=== PATIENT | female | born 1960 | race Caucasian/White ===

== ENCOUNTER 2016-07-19 05:14 | Inpatient (IN) | payer MEDICAID ==
[~2016-07-19 05:14] MED LIST: ASPIRIN EC81 MG PO; CELEXA20 M2 PO; COREG12.5 M1 PO; COREG25 M1 PO; COZAAR100 M1 PO; INVOKAMET 150-1 EACH PO; LANTUS100 UNITS/ SC; LIPITOR80 M1 PO; NEURONTIN300 M1 PO; NOVOLOG100 UNITS/ SC; PLAVIX75 M1 PO; PRADAXA150 M1 PO; SEROQUEL25 M2 PO; ZESTRIL40 M2 PO
[2016-07-19] MEDS ORDERED: LANTUS SOL100 UNIT/1 SC (05:43)
[2016-07-19 05:48] LABS: BASO % 0.5 % (0-2); BASO ABSOLUTE COUNT 0.1 tho/cmm (0.0-0.2); EOS % 1.2 % (0-7); EOSINOPHIL ABSOLUTE COUNT 0.2 tho/cmm (0.0-0.7); HCT-HEMATOCRIT 44.8 % (34.0-49.0); HGB-HEMOGLOBIN 15.5 gm/dl (12.0-15.5); IMMATURE GRANULOCYTES ABSOLUTE 0.04 tho/cmm (0-0.03); IMMATURE GRANULOCYTES PERCENT 0.3 % (0-0.3); LYMPH % 20.5 % (20-45); LYMPH ABSOLUTE COUNT 2.7 tho/cmm (0.8-4.5); MCH (MEAN CORPUSCULAR HGB) 28.7 pg (28.0-32.0); MCHC MEAN CORPUSCULAR HGB CONC 34.6 % (32.0-36.0); MEAN PLATELET VOLUME 10.5 cmc (9.4-12.4); MONO % 8.7 % (0-12); MONOCYTE ABSOLUTE COUNT 1.1 tho/cmm (0.0-1.2); NEUTROPHIL ABSOLUTE COUNT 8.9 tho/cmm (1.6-8.0); NEUTROPHIL-AUTOMATED 8.9 tho/cmm (1.6-8.0); NEUTROPHILS % 68.8 % (40-80); PLATELET COUNT 472 tho/cmm (150-450); RED CELL DISTRIBUTION WIDTH 14.6 % (12.4-16.4)
[2016-07-19 06:08] LABS: ANION GAP 16 mmol/L (0-20); BLOOD UREA NITROGEN 17 mg/dl (6-24); CALCIUM 8.7 mg/dl (8.5-10.5); CARBON DIOXIDE-VENOUS 21 mmol/L (22-32); CHLORIDE 108 mmol/l (96-110); CREATININE 1.13 mg/dl (0.50-1.10); GLUCOSE 298 mg/dL (70-110); MAGNESIUM 1.8 mg/dl (1.3-2.6); POTASSIUM 3.9 mmol/L (3.7-5.1); SODIUM 141 mmol/L (135-145); eGFR VALUE FOR BLACK 62 mL/Min
[2016-07-19 06:11] LABS: TSH-THYROID STIMULATING HORM. 4.54 uIU/ml (0.40-3.80)
[2016-07-20] MEDS ORDERED: NOVOLOG FL100 UNIT/2 SC (15:41)
[2016-07-21 07:56] LABS: ABG CO2 ARTERIAL 20 mmol/L (21-27); ARTERIAL BLD GAS O2 SATURATION 96 % (95-98); ARTERIAL BLOOD GAS PCO2 32 mmHg (32-45); ARTERIAL PO2 82 mmHg (70-100); BICARBONATE 19 mmol/L (21-28); BLOOD GAS BASE EXCESS -4 mM/L (-/+3)
[2016-07-21 07:56] LABS: BASO % 0.2 % (0-2); BASO ABSOLUTE COUNT 0.1 tho/cmm (0.0-0.2); EOS % 0.5 % (0-7); EOSINOPHIL ABSOLUTE COUNT 0.1 tho/cmm (0.0-0.7); HCT-HEMATOCRIT 47.8 % (34.0-49.0); HGB-HEMOGLOBIN 15.8 gm/dl (12.0-15.5); LYMPH % 18.2 % (20-45); LYMPH ABSOLUTE COUNT 3.8 tho/cmm (0.8-4.5); MCH (MEAN CORPUSCULAR HGB) 27.3 pg (28.0-32.0); MCHC MEAN CORPUSCULAR HGB CONC 33.1 % (32.0-36.0); MCV (MEAN CELL VOLUME) 82.7 fl (82.0-96.0); MEAN PLATELET VOLUME 10.2 cmc (9.4-12.4); MONO % 8.7 % (0-12); MONOCYTE ABSOLUTE COUNT 1.8 tho/cmm (0.0-1.2); NEUTROPHIL ABSOLUTE COUNT 15.3 tho/cmm (1.6-8.0); NEUTROPHIL-AUTOMATED 15.3 tho/cmm (1.6-8.0); NEUTROPHILS % 72.4 % (40-80); PLATELET COUNT 433 tho/cmm (150-450); RED BLOOD COUNT 5.78 mil/cmm (4.00-5.20); RED CELL DISTRIBUTION WIDTH 14.8 % (12.4-16.4)
[2016-07-21 07:57] LABS: WHITE BLOOD COUNT 21.1 tho/cmm (4.0-10.0)
[2016-07-21 08:18] LABS: ALBUMIN 3.4 g/dl (3.5-5.0); ALKALINE PHOSPHATASE 88 U/L (33-138); ALT/SGPT 45 U/L (12-78); ANION GAP 18 mmol/L (0-20); AST/SGOT 18 U/L (10-40); BILIRUBIN,TOTAL 0.9 mg/dl (0-1.5); BLOOD UREA NITROGEN 18 mg/dl (6-24); CALCIUM 8.9 mg/dl (8.5-10.5); CARBON DIOXIDE-VENOUS 21 mmol/L (22-32); CHLORIDE 107 mmol/l (96-110); CREATININE 1.04 mg/dl (0.50-1.10); GLUCOSE 233 mg/dL (70-110); MAGNESIUM 2.2 mg/dl (1.3-2.6); PHOSPHOROUS 3.2 mg/dl (2.5-4.9); SODIUM 142 mmol/L (135-145); eGFR VALUE FOR BLACK 69 mL/Min
[2016-07-21 18:03] LABS: BASO % 0.2 % (0-2); BASO ABSOLUTE COUNT 0.1 tho/cmm (0.0-0.2); EOS % 0.1 % (0-7); IMMATURE GRANULOCYTES PERCENT 0.5 % (0-0.3); LYMPH % 19.1 % (20-45); LYMPH ABSOLUTE COUNT 4.1 tho/cmm (0.8-4.5); MCH (MEAN CORPUSCULAR HGB) 28.5 pg (28.0-32.0); MCHC MEAN CORPUSCULAR HGB CONC 33.3 % (32.0-36.0); MCV (MEAN CELL VOLUME) 85.4 fl (82.0-96.0); MEAN PLATELET VOLUME 10.1 cmc (9.4-12.4); MONO % 8.5 % (0-12); MONOCYTE ABSOLUTE COUNT 1.8 tho/cmm (0.0-1.2); NEUTROPHIL ABSOLUTE COUNT 15.3 tho/cmm (1.6-8.0); NEUTROPHIL-AUTOMATED 15.3 tho/cmm (1.6-8.0); NEUTROPHILS % 71.6 % (40-80); PLATELET COUNT 415 tho/cmm (150-450); RED BLOOD COUNT 5.27 mil/cmm (4.00-5.20); RED CELL DISTRIBUTION WIDTH 14.6 % (12.4-16.4); WHITE BLOOD COUNT 21.3 tho/cmm (4.0-10.0)
[2016-07-21 18:19] LABS: ABG CO2 ARTERIAL 22 mmol/L (21-27); ARTERIAL BLD GAS O2 SATURATION 99 % (95-98); ARTERIAL BLOOD GAS PCO2 46 mmHg (32-45); ARTERIAL PO2 165 mmHg (70-100); BICARBONATE 21 mmol/L (21-28); BLOOD GAS BASE EXCESS -5 mM/L (-/+3); PH 7.29 Units (7.35-7.45)
[2016-07-21 18:23] LABS: ALB/GLOB RATIO 0.9 (0.8-2.0); ALKALINE PHOSPHATASE 78 U/L (33-138); ALT/SGPT 46 U/L (12-78); ANION GAP 16 mmol/L (0-20); AST/SGOT 33 U/L (10-40); BILIRUBIN,TOTAL 0.9 mg/dl (0-1.5); BLOOD UREA NITROGEN 21 mg/dl (6-24); CALCIUM 7.8 mg/dl (8.5-10.5); CARBON DIOXIDE-VENOUS 20 mmol/L (22-32); CHLORIDE 107 mmol/l (96-110); CREATININE 1.15 mg/dl (0.50-1.10); GLUCOSE 202 mg/dL (70-110); MAGNESIUM 2.5 mg/dl (1.3-2.6); SODIUM 139 mmol/L (135-145); eGFR VALUE FOR BLACK 61 mL/Min
[2016-07-21 19:20] LABS: ABG CO2 ARTERIAL 21 mmol/L (21-27); ARTERIAL BLD GAS O2 SATURATION 98 % (95-98); ARTERIAL BLOOD GAS PCO2 38 mmHg (32-45); ARTERIAL PO2 118 mmHg (70-100); BICARBONATE 20 mmol/L (21-28); BLOOD GAS BASE EXCESS -5 mM/L (-/+3); PH 7.34 Units (7.35-7.45)
[2016-07-21 20:01] LABS: URINE BILIRUBIN NEGATIVE (NEG); URINE BLOOD LARGE (NEG); URINE GLUCOSE (UA) LARGE (NEG); URINE KETONE NEGATIVE (NEG); URINE LEUKOCYTE ESTERASE POSITIVE (NEG); URINE NITRITE NEGATIVE (NEG); URINE PROTEIN LARGE (NEG); URINE SPECIFIC GRAVITY 1.015 (1.003-1.030)
[2016-07-21 20:02] LABS: URINE APPEARANCE CLOUDY; URINE COLOR YELLOW
[2016-07-21 20:09] LABS: URINE AMORPHOUS 4+; URINE BACTERIA 4+
[2016-07-21 20:10] LABS: URINE EPITHELIAL CELLS 0-2 /[HPF] (0-10); URINE WBC 15-20 /[HPF] (0-5)
[2016-07-22 05:25] LABS: ANION GAP 15 mmol/L (0-20); BLOOD UREA NITROGEN 23 mg/dl (6-24); CALCIUM 8.2 mg/dl (8.5-10.5); CARBON DIOXIDE-VENOUS 23 mmol/L (22-32); CHLORIDE 107 mmol/l (96-110); CREATININE 1.16 mg/dl (0.50-1.10); GLUCOSE 192 mg/dL (70-110); POTASSIUM 3.7 mmol/L (3.7-5.1); SODIUM 141 mmol/L (135-145); eGFR VALUE FOR BLACK 61 mL/Min
[2016-07-22 05:42] LABS: ABG CO2 ARTERIAL 22 mmol/L (21-27); ARTERIAL BLD GAS O2 SATURATION 94 % (95-98); ARTERIAL BLOOD GAS PCO2 31 mmHg (32-45); ARTERIAL PO2 65 mmHg (70-100); BICARBONATE 21 mmol/L (21-28); BLOOD GAS BASE EXCESS -2 mM/L (-/+3); PH 7.44 Units (7.35-7.45)
[2016-07-22 12:47] LABS: ABG CO2 ARTERIAL 23 mmol/L (21-27); ARTERIAL BLD GAS O2 SATURATION 94 % (95-98); ARTERIAL BLOOD GAS PCO2 33 mmHg (32-45); ARTERIAL PO2 69 mmHg (70-100); BICARBONATE 22 mmol/L (21-28); BLOOD GAS BASE EXCESS -1 mM/L (-/+3); PH 7.44 Units (7.35-7.45)
[2016-07-22 17:04] LABS: ABG CO2 ARTERIAL 22 mmol/L (21-27); ARTERIAL BLD GAS O2 SATURATION 97 % (95-98); ARTERIAL BLOOD GAS PCO2 32 mmHg (32-45); ARTERIAL PO2 80 mmHg (70-100); BICARBONATE 21 mmol/L (21-28); BLOOD GAS BASE EXCESS -2 mM/L (-/+3); PH 7.43 Units (7.35-7.45)
[2016-07-22 17:25] LABS: BASO % 0.1 % (0-2); EOS % 0.6 % (0-7); EOSINOPHIL ABSOLUTE COUNT 0.1 tho/cmm (0.0-0.7); HCT-HEMATOCRIT 41.4 % (34.0-49.0); HGB-HEMOGLOBIN 13.9 gm/dl (12.0-15.5); IMMATURE GRANULOCYTES ABSOLUTE 0.06 tho/cmm (0-0.03); IMMATURE GRANULOCYTES PERCENT 0.4 % (0-0.3); LYMPH % 11.7 % (20-45); LYMPH ABSOLUTE COUNT 1.8 tho/cmm (0.8-4.5); MCH (MEAN CORPUSCULAR HGB) 28.6 pg (28.0-32.0); MCHC MEAN CORPUSCULAR HGB CONC 33.6 % (32.0-36.0); MCV (MEAN CELL VOLUME) 85.2 fl (82.0-96.0); MEAN PLATELET VOLUME 10.3 cmc (9.4-12.4); MONO % 11.6 % (0-12); MONOCYTE ABSOLUTE COUNT 1.8 tho/cmm (0.0-1.2); NEUTROPHIL ABSOLUTE COUNT 11.8 tho/cmm (1.6-8.0); NEUTROPHIL-AUTOMATED 11.8 tho/cmm (1.6-8.0); NEUTROPHILS % 75.6 % (40-80); PLATELET COUNT 371 tho/cmm (150-450); RED BLOOD COUNT 4.86 mil/cmm (4.00-5.20); RED CELL DISTRIBUTION WIDTH 14.9 % (12.4-16.4); WHITE BLOOD COUNT 15.6 tho/cmm (4.0-10.0)
[2016-07-22 17:35] LABS: ANION GAP 13 mmol/L (0-20); BLOOD UREA NITROGEN 21 mg/dl (6-24); CARBON DIOXIDE-VENOUS 26 mmol/L (22-32); CHLORIDE 108 mmol/l (96-110); CREATININE 1.19 mg/dl (0.50-1.10); GLUCOSE 113 mg/dL (70-110); MAGNESIUM 2.1 mg/dl (1.3-2.6); PHOSPHOROUS 3.3 mg/dl (2.5-4.9); POTASSIUM 3.6 mmol/L (3.7-5.1); SODIUM 143 mmol/L (135-145); eGFR VALUE FOR BLACK 59 mL/Min
--- NOTE | 2016-07-22 19:26 | NUR ---
1526 ON ENTERING ROOM ALARMS RINGING AND FOUND THAT PT IS IN VTAC AND TO VFIB. CODE CALLED, STARTED BAGGING, RESP CAME AND BAGGED, STARTED COMPRESSIONS AND THEN HELP ARRIVED AND SHOCK PADS ADDED AND QUICKLY SHOCKED X1 AND CONVERTED EASILY TO SB TO RSR W OCC PAC. PULMONARY MD HERE AND PT INTUBATED DUE TO NOT WAKING UP. ONLY MEDS GIVEN WHEN NEEDING TO INTUBATE PT AND THEN SEDATION ADDED TO KEEP PT QUIET OVERNIGHT. OG PLACED AND THEN CXR DONE, ALONG WITH STAT LAB DONE. FAMILY CALLED AND THEN FOUND THAT COUSIN CAME IN AND UPDATED WITH WHAT HAPPENED AGAIN TODAY. JUNE BUENROSTRO MD HERE AND REVIEWED CHART TO CONT WHAT WE ARE CURRENTLY DOING AT THIS TIME WITH KEEPING HER SEDATED ON VENT OVER NIGHT AND AMNIO RUNNING AT 1MG.
[2016-07-23 04:36] LABS: ANION GAP 13 mmol/L (0-20); BLOOD UREA NITROGEN 21 mg/dl (6-24); CALCIUM 8.4 mg/dl (8.5-10.5); CARBON DIOXIDE-VENOUS 25 mmol/L (22-32); CHLORIDE 107 mmol/l (96-110); CREATININE 1.07 mg/dl (0.50-1.10); GLUCOSE 103 mg/dL (70-110); POTASSIUM 3.3 mmol/L (3.7-5.1); SODIUM 142 mmol/L (135-145); TRIGLYCERIDES 128 mg/dl (<149); eGFR VALUE FOR BLACK 67 mL/Min
[2016-07-24 04:37] LABS: HGB-HEMOGLOBIN 14.2 gm/dl (12.0-15.5); PLATELET COUNT 351 tho/cmm (150-450)
[2016-07-24 04:48] LABS: ALB/GLOB RATIO 0.8 (0.8-2.0); ALBUMIN 2.6 g/dl (3.5-5.0); ALKALINE PHOSPHATASE 62 U/L (33-138); ALT/SGPT 30 U/L (12-78); ANION GAP 13 mmol/L (0-20); AST/SGOT 21 U/L (10-40); BILIRUBIN,DIRECT 0.2 mg/dl (0.0-0.3); BILIRUBIN,INDIRECT 0.3 mg/dL (0.0-1.0); BILIRUBIN,TOTAL 0.5 mg/dl (0-1.5); BLOOD UREA NITROGEN 17 mg/dl (6-24); CALCIUM 8.1 mg/dl (8.5-10.5); CARBON DIOXIDE-VENOUS 23 mmol/L (22-32); CHLORIDE 109 mmol/l (96-110); CREATININE 0.94 mg/dl (0.50-1.10); GLUCOSE 84 mg/dL (70-110); POTASSIUM 4.1 mmol/L (3.7-5.1); SODIUM 141 mmol/L (135-145); eGFR VALUE FOR BLACK 78 mL/Min
[2016-07-24 05:49] LABS: ABG CO2 ARTERIAL 21 mmol/L (21-27); ARTERIAL BLD GAS O2 SATURATION 92 % (95-98); ARTERIAL BLOOD GAS PCO2 33 mmHg (32-45); BICARBONATE 20 mmol/L (21-28); BLOOD GAS BASE EXCESS -4 mM/L (-/+3)
[2016-07-24 05:50] LABS: ARTERIAL PO2 65 mmHg (70-100)
[2016-07-25 03:48] LABS: ALB/GLOB RATIO 0.7 (0.8-2.0); ALBUMIN 2.6 g/dl (3.5-5.0); ALKALINE PHOSPHATASE 66 U/L (33-138); ALT/SGPT 26 U/L (12-78); AST/SGOT 16 U/L (10-40); BILIRUBIN,DIRECT 0.2 mg/dl (0.0-0.3); BILIRUBIN,INDIRECT 0.2 mg/dL (0.0-1.0); BILIRUBIN,TOTAL 0.4 mg/dl (0-1.5); BLOOD UREA NITROGEN 14 mg/dl (6-24); CALCIUM 8.2 mg/dl (8.5-10.5); CARBON DIOXIDE-VENOUS 26 mmol/L (22-32); CHLORIDE 110 mmol/l (96-110); CREATININE 0.99 mg/dl (0.50-1.10); SODIUM 140 mmol/L (135-145); eGFR VALUE FOR BLACK 73 mL/Min
[2016-07-25 03:52] LABS: ANION GAP 9 mmol/L (0-20); GLUCOSE 163 mg/dL (70-110); POTASSIUM 5.1 mmol/L (3.7-5.1)
[2016-07-26 03:28] LABS: BASO % 0.2 % (0-2); EOS % 1.9 % (0-7); EOSINOPHIL ABSOLUTE COUNT 0.2 tho/cmm (0.0-0.7); HCT-HEMATOCRIT 43.4 % (34.0-49.0); HGB-HEMOGLOBIN 14.5 gm/dl (12.0-15.5); IMMATURE GRANULOCYTES ABSOLUTE 0.06 tho/cmm (0-0.03); IMMATURE GRANULOCYTES PERCENT 0.5 % (0-0.3); LYMPH % 11.1 % (20-45); LYMPH ABSOLUTE COUNT 1.4 tho/cmm (0.8-4.5); MCH (MEAN CORPUSCULAR HGB) 28.3 pg (28.0-32.0); MCHC MEAN CORPUSCULAR HGB CONC 33.4 % (32.0-36.0); MCV (MEAN CELL VOLUME) 84.8 fl (82.0-96.0); MEAN PLATELET VOLUME 9.9 cmc (9.4-12.4); MONO % 15.3 % (0-12); MONOCYTE ABSOLUTE COUNT 1.9 tho/cmm (0.0-1.2); NEUTROPHIL ABSOLUTE COUNT 8.8 tho/cmm (1.6-8.0); NEUTROPHIL-AUTOMATED 8.8 tho/cmm (1.6-8.0); PLATELET COUNT 367 tho/cmm (150-450); RED BLOOD COUNT 5.12 mil/cmm (4.00-5.20); RED CELL DISTRIBUTION WIDTH 14.8 % (12.4-16.4); WHITE BLOOD COUNT 12.4 tho/cmm (4.0-10.0)
[2016-07-26 03:42] LABS: BLOOD UREA NITROGEN 16 mg/dl (6-24); CALCIUM 8.1 mg/dl (8.5-10.5); CARBON DIOXIDE-VENOUS 28 mmol/L (22-32); CHLORIDE 105 mmol/l (96-110); CREATININE 1.03 mg/dl (0.50-1.10); MAGNESIUM 1.9 mg/dl (1.3-2.6); SODIUM 140 mmol/L (135-145); eGFR VALUE FOR BLACK 70 mL/Min
[2016-07-26 03:44] LABS: ANION GAP 11 mmol/L (0-20); GLUCOSE 276 mg/dL (70-110); POTASSIUM 4.1 mmol/L (3.7-5.1)
[2016-07-26 05:33] LABS: ABG CO2 ARTERIAL 27 mmol/L (21-27); ARTERIAL BLD GAS O2 SATURATION 95 % (95-98); ARTERIAL BLOOD GAS PCO2 43 mmHg (32-45); ARTERIAL PO2 75 mmHg (70-100); BICARBONATE 25 mmol/L (21-28); BLOOD GAS BASE EXCESS 1 mM/L (-/+3); PH 7.39 Units (7.35-7.45)
[2016-07-26] MEDS ORDERED: CEFTRIAXON1000 MG/VI IV (10:15)
[2016-07-26] MEDS ORDERED: IPRAT-ALBUT 0.5-3 ML ×2 (10:16→10:17)
[2016-07-26] MEDS ORDERED: LOVENOX100 MG/1 M SC (10:17)
[2016-07-26] MEDS ORDERED: AMIODARONE HCL200 M1 PO (10:18)
[2016-07-26] MEDS ORDERED: DIPRIVAN IV (10:20)
[2016-07-26] MEDS ORDERED: FENTANYL (10:23)
[2016-07-26] MEDS ORDERED: TYLENOL325 M2 PO (10:27)
[2016-07-26] MEDS ORDERED: MORPHINE IV (10:27)
[2016-07-26] MEDS ORDERED: LASIX40 M1 PO (10:28)
[2016-07-26] MEDS ORDERED: PROTONIX IV40 MG IV (10:29)
[2016-07-26] MEDS ORDERED: PERIDEX118 ML SSP (10:29)
[2016-07-26] MEDS ORDERED: NOVOLOG FL100 UNIT/2 SC (10:33)
[2016-07-26] MEDS ORDERED: LEVEMIR100 UNITS/ SC (10:33)
[2016-12-08] MEDS ORDERED: PRADAXA75 M1 PO (15:46)
[2016-12-08] MEDS ORDERED: NORVASC5 M2 PO (15:47)
[2016-12-08] MEDS ORDERED: GABAPENTIN300 M1 PO (15:47)
[2016-12-08] MEDS ORDERED: ISOSORBIDE MONO30 M4 PO (15:47)
[2016-12-08] MEDS ORDERED: CARDIZEM CD120 M1 PO (15:48)
[2016-12-08] MEDS ORDERED: FLAGYL500 M1 PO (15:49)
[2016-12-08] MEDS ORDERED: NOVOLOG FL100 UNIT/2 SC (15:50)
[2016-12-08] MEDS ORDERED: COREG25 M1 PO (15:51)
[2016-12-08] MEDS ORDERED: CLOPIDOGREL75 M1 PO (15:51)
[2016-12-08] MEDS ORDERED: QUETIAPINE FUMA25 M1 PO (15:52)
[2016-12-08] MEDS ORDERED: [UNRECOGNIZED DRUG - OTHER] PO (15:53)
[2016-12-08] MEDS ORDERED: ALDACTONE25 M1 PO (15:53)
[2016-12-08] MEDS ORDERED: INVOKANA300 MG PO (15:54)
[2016-12-08] MEDS ORDERED: METOPROLOL TART25 M1 PO (15:54)
[2016-12-08] MEDS ORDERED: LIPITOR80 M1 PO (15:54)
[2016-12-08] MEDS ORDERED: CARDIZEM CD360 M1 PO (15:55)
[2016-12-08] MEDS ORDERED: AMIODARONE HCL200 M1 PO (15:56)
[2016-12-08] MEDS ORDERED: LANTUS100 UNITS/ SC (15:56)
[2016-12-08] MEDS ORDERED: LASIX40 M1 PO (15:57)
[2016-12-09] MEDS ORDERED: ASPIRIN81 M1 PO (11:20)
[2016-12-09] MEDS ORDERED: GLYXAMBI 10 MG1 EACH PO (14:16)
[2016-12-09] MEDS ORDERED: NITROGLYCERIN0.4 M2 SL (14:27)
[2016-12-09] MEDS ORDERED: MECLIZINE HCL25 M3 PO (18:30)
[2016-12-11] MEDS ORDERED: TOUJEO SOL300 UNIT/1 SC (09:43)
[2016-12-11] MEDS ORDERED: GLYXAMBI 10 MG1 EACH PO (09:45)
== END 2016-07-26 17:34 | disposition other institution (70) | DRG 286 ==
LOC: EDMED 05:14 → PCUA 12:25 → CCU 07-21 09:31
PROVIDERS: Emergency Medicine; Hospitalist; Internal Medicine; Internal Medicine Critical Care Medicine; Nurse Practitioner Acute Care; Physician Assistant; ADMIT Internal Medicine
PROC: 0BH17EZ Insertion of Endotracheal Airway into Trachea, Via Natural or Artificial Opening (ICD-10-PCS; principal; 2016-07-21)
PROC: 5A1945Z Respiratory Ventilation, 24-96 Consecutive Hours (ICD-10-PCS; 2016-07-21)
PROC: 4A023N7 Measurement of Cardiac Sampling and Pressure, Left Heart, Percutaneous Approach (ICD-10-PCS; 2016-07-21)
PROC: 02HV33Z Insertion of Infusion Device into Superior Vena Cava, Percutaneous Approach (ICD-10-PCS; 2016-07-21)
PROC: B2111ZZ Fluoroscopy of Multiple Coronary Arteries using Low Osmolar Contrast (ICD-10-PCS; 2016-07-21)
PROC: B2151ZZ Fluoroscopy of Left Heart using Low Osmolar Contrast (ICD-10-PCS; 2016-07-21)
DX: I48.0 Paroxysmal atrial fibrillation (principal); J96.90 Respiratory failure, unspecified, unspecified whether with hypoxia or hypercapnia; I47.2 Ventricular tachycardia; I25.2 Old myocardial infarction; E11.40 Type 2 diabetes mellitus with diabetic neuropathy, unspecified; F32.9 Major depressive disorder, single episode, unspecified; I46.2 Cardiac arrest due to underlying cardiac condition; I25.10 Atherosclerotic heart disease of native coronary artery without angina pectoris; I12.9 Hypertensive chronic kidney disease with stage 1 through stage 4 chronic kidney disease, or unspecified chronic kidney disease; N18.3 Chronic kidney disease, stage 3 (moderate); I49.01 Ventricular fibrillation; Z79.4 Long term (current) use of insulin; Z86.73 Personal history of transient ischemic attack (TIA), and cerebral infarction without residual deficits; Z79.82 Long term (current) use of aspirin; Z79.02 Long term (current) use of antithrombotics/antiplatelets
CPT/HCPCS: C1725; C1751; C1758; C1769; C1887; C1894; C9113; G0378; J0282; J0295; J0360; J0696; J1644; J1650; J1815; J1940; J2250; J2270; J2704; J3010; J3475; J3480; J7040; Q9967

== ENCOUNTER 2016-07-31 13:11 | Inpatient (IN) | payer MEDICAID ==
[~2016-07-31 13:11] MED LIST changes: +AMIODARONE HCL200 M1 PO; +CEFTRIAXON1000 MG/VI IV; +DIPRIVAN IV; +FENTANYL; +IPRAT-ALBUT 0.5-3 ML; +LANTUS SOL100 UNIT/1 SC; +LASIX40 M1 PO; +LEVEMIR100 UNITS/ SC; +LOVENOX100 MG/1 M SC; +MORPHINE IV; +NOVOLOG FL100 UNIT/2 SC; +PERIDEX118 ML SSP; +PROTONIX IV40 MG IV; +TYLENOL325 M2 PO
[2016-08-02 10:30] LABS: BASO % 0.6 % (0-2); BASO ABSOLUTE COUNT 0.1 tho/cmm (0.0-0.2); EOS % 3.1 % (0-7); EOSINOPHIL ABSOLUTE COUNT 0.5 tho/cmm (0.0-0.7); HCT-HEMATOCRIT 45.1 % (34.0-49.0); HGB-HEMOGLOBIN 15.2 gm/dl (12.0-15.5); IMMATURE GRANULOCYTES ABSOLUTE 0.35 tho/cmm (0-0.03); LYMPH ABSOLUTE COUNT 2.4 tho/cmm (0.8-4.5); MCH (MEAN CORPUSCULAR HGB) 27.8 pg (28.0-32.0); MCHC MEAN CORPUSCULAR HGB CONC 33.7 % (32.0-36.0); MCV (MEAN CELL VOLUME) 82.4 fl (82.0-96.0); MEAN PLATELET VOLUME 9.5 cmc (9.4-12.4); MONO % 11.8 % (0-12); MONOCYTE ABSOLUTE COUNT 2.1 tho/cmm (0.0-1.2); NEUTROPHIL ABSOLUTE COUNT 11.9 tho/cmm (1.6-8.0); NEUTROPHIL-AUTOMATED 11.9 tho/cmm (1.6-8.0); NEUTROPHILS % 68.5 % (40-80); PLATELET COUNT 528 tho/cmm (150-450); RED BLOOD COUNT 5.47 mil/cmm (4.00-5.20); RED CELL DISTRIBUTION WIDTH 14.5 % (12.4-16.4); WHITE BLOOD COUNT 17.4 tho/cmm (4.0-10.0)
[2016-08-02 10:31] LABS: BLOOD UREA NITROGEN 17 mg/dl (6-24); CALCIUM 8.4 mg/dl (8.5-10.5); CARBON DIOXIDE-VENOUS 26 mmol/L (22-32); CHLORIDE 102 mmol/l (96-110); CREATININE 1.07 mg/dl (0.50-1.10); GLUCOSE 267 mg/dL (70-110); SODIUM 137 mmol/L (135-145); eGFR VALUE FOR BLACK 67 mL/Min
[2016-08-02 10:32] LABS: ANION GAP 14 mmol/L (0-20); MAGNESIUM 1.5 mg/dl (1.3-2.6)
[2016-08-02 10:33] LABS: POTASSIUM 4.9 mmol/L (3.7-5.1)
[2016-08-04] MEDS ORDERED: DILTIAZEM 24HR180 M4 PO (15:38)
[2016-08-04] MEDS ORDERED: FLAGYL500 M1 PO (15:38)
[2016-08-04] MEDS ORDERED: OMEPRAZOLE40 M2 PO (15:39)
[2016-08-04] MEDS ORDERED: COREG25 M1 PO (15:40)
[2016-08-04] MEDS ORDERED: LIPITOR80 M1 PO (15:41)
[2016-08-04] MEDS ORDERED: PRADAXA150 M1 PO (15:42)
[2016-08-04] MEDS ORDERED: INVOKAMET 50-51 EACH PO (15:46)
[2016-12-08] MEDS ORDERED: PRADAXA75 M1 PO (15:46)
[2016-12-08] MEDS ORDERED: ISOSORBIDE MONO30 M4 PO (15:47)
[2016-12-08] MEDS ORDERED: NORVASC5 M2 PO (15:47)
[2016-12-08] MEDS ORDERED: GABAPENTIN300 M1 PO (15:47)
[2016-12-08] MEDS ORDERED: CARDIZEM CD120 M1 PO (15:48)
[2016-12-08] MEDS ORDERED: FLAGYL500 M1 PO (15:49)
[2016-12-08] MEDS ORDERED: NOVOLOG FL100 UNIT/2 SC (15:50)
[2016-12-08] MEDS ORDERED: CLOPIDOGREL75 M1 PO (15:51)
[2016-12-08] MEDS ORDERED: COREG25 M1 PO (15:51)
[2016-12-08] MEDS ORDERED: QUETIAPINE FUMA25 M1 PO (15:52)
[2016-12-08] MEDS ORDERED: ALDACTONE25 M1 PO (15:53)
[2016-12-08] MEDS ORDERED: [UNRECOGNIZED DRUG - OTHER] PO (15:53)
[2016-12-08] MEDS ORDERED: METOPROLOL TART25 M1 PO (15:54)
[2016-12-08] MEDS ORDERED: LIPITOR80 M1 PO (15:54)
[2016-12-08] MEDS ORDERED: INVOKANA300 MG PO (15:54)
[2016-12-08] MEDS ORDERED: CARDIZEM CD360 M1 PO (15:55)
[2016-12-08] MEDS ORDERED: LANTUS100 UNITS/ SC (15:56)
[2016-12-08] MEDS ORDERED: AMIODARONE HCL200 M1 PO (15:56)
[2016-12-08] MEDS ORDERED: LASIX40 M1 PO (15:57)
[2016-12-09] MEDS ORDERED: ASPIRIN81 M1 PO (11:20)
[2016-12-09] MEDS ORDERED: GLYXAMBI 10 MG1 EACH PO (14:16)
[2016-12-09] MEDS ORDERED: NITROGLYCERIN0.4 M2 SL (14:27)
[2016-12-09] MEDS ORDERED: MECLIZINE HCL25 M3 PO (18:30)
[2016-12-11] MEDS ORDERED: TOUJEO SOL300 UNIT/1 SC (09:43)
[2016-12-11] MEDS ORDERED: GLYXAMBI 10 MG1 EACH PO (09:45)
== END 2016-08-04 16:30 | DRG 57 ==
LOC: EMR2 13:11 → 5EB 14:01
PROVIDERS: Internal Medicine; Internal Medicine Cardiovascular Disease; ADMIT Internal Medicine Cardiovascular Disease
DX: I69.354 Hemiplegia and hemiparesis following cerebral infarction affecting left non-dominant side (principal); E11.21 Type 2 diabetes mellitus with diabetic nephropathy; Z86.74 Personal history of sudden cardiac arrest; A04.7 Enterocolitis due to Clostridium difficile; I48.0 Paroxysmal atrial fibrillation; I25.10 Atherosclerotic heart disease of native coronary artery without angina pectoris; I25.2 Old myocardial infarction; I45.81 Long QT syndrome; Z95.810 Presence of automatic (implantable) cardiac defibrillator; F32.9 Major depressive disorder, single episode, unspecified; Z95.5 Presence of coronary angioplasty implant and graft; I12.9 Hypertensive chronic kidney disease with stage 1 through stage 4 chronic kidney disease, or unspecified chronic kidney disease; E11.22 Type 2 diabetes mellitus with diabetic chronic kidney disease; N18.3 Chronic kidney disease, stage 3 (moderate)
CPT/HCPCS: G0008; J1815; J3475

== ENCOUNTER 2016-08-06 21:06 | Inpatient (IN) | payer MEDICAID ==
[~2016-08-06 21:06] MED LIST changes: +DILTIAZEM 24HR180 M4 PO; +FLAGYL500 M1 PO; +INVOKAMET 50-51 EACH PO; +OMEPRAZOLE40 M2 PO
[2016-08-06 21:37] LABS: BASO % 0.3 % (0-2); BASO ABSOLUTE COUNT 0.1 tho/cmm (0.0-0.2); EOS % 2.3 % (0-7); EOSINOPHIL ABSOLUTE COUNT 0.4 tho/cmm (0.0-0.7); HCT-HEMATOCRIT 42.5 % (34.0-49.0); HGB-HEMOGLOBIN 14.6 gm/dl (12.0-15.5); IMMATURE GRANULOCYTES ABSOLUTE 0.08 tho/cmm (0-0.03); IMMATURE GRANULOCYTES PERCENT 0.4 % (0-0.3); LYMPH % 17.9 % (20-45); LYMPH ABSOLUTE COUNT 3.2 tho/cmm (0.8-4.5); MCH (MEAN CORPUSCULAR HGB) 27.8 pg (28.0-32.0); MCHC MEAN CORPUSCULAR HGB CONC 34.4 % (32.0-36.0); MEAN PLATELET VOLUME 9.3 cmc (9.4-12.4); MONO % 10.4 % (0-12); MONOCYTE ABSOLUTE COUNT 1.9 tho/cmm (0.0-1.2); NEUTROPHIL ABSOLUTE COUNT 12.3 tho/cmm (1.6-8.0); NEUTROPHIL-AUTOMATED 12.3 tho/cmm (1.6-8.0); NEUTROPHILS % 68.7 % (40-80); PLATELET COUNT 694 tho/cmm (150-450); RED BLOOD COUNT 5.25 mil/cmm (4.00-5.20); RED CELL DISTRIBUTION WIDTH 14.4 % (12.4-16.4); WHITE BLOOD COUNT 17.9 tho/cmm (4.0-10.0)
[2016-08-06 21:52] LABS: ANION GAP 14 mmol/L (0-20); BLOOD UREA NITROGEN 13 mg/dl (6-24); CALCIUM 8.6 mg/dl (8.5-10.5); CARBON DIOXIDE-VENOUS 25 mmol/L (22-32); CHLORIDE 102 mmol/l (96-110); CREATININE 1.33 mg/dl (0.50-1.10); GLUCOSE 290 mg/dL (70-110); SODIUM 138 mmol/L (135-145); eGFR VALUE FOR BLACK 51 mL/Min
[2016-08-06 22:04] LABS: MAGNESIUM 1.6 mg/dl (1.3-2.6); POTASSIUM 3.3 mmol/L (3.7-5.1)
[2016-08-07] MEDS ORDERED: METOPROLOL TART25 M1 PO (00:11)
[2016-08-07] MEDS ORDERED: TOUJEO SOL300 UNIT/1 SC (09:57)
[2016-08-07] MEDS ORDERED: LISINOPRIL40 M1 PO (09:58)
[2016-08-07 22:03] LABS: ANION GAP 14 mmol/L (0-20); BLOOD UREA NITROGEN 12 mg/dl (6-24); CALCIUM 8.3 mg/dl (8.5-10.5); CARBON DIOXIDE-VENOUS 26 mmol/L (22-32); CHLORIDE 103 mmol/l (96-110); CREATININE 1.25 mg/dl (0.50-1.10); GLUCOSE 222 mg/dL (70-110); SODIUM 139 mmol/L (135-145); eGFR VALUE FOR BLACK 55 mL/Min
[2016-08-07 22:22] LABS: POTASSIUM 3.5 mmol/L (3.7-5.1)
[2016-08-08 08:55] LABS: ANION GAP 12 mmol/L (0-20); BLOOD UREA NITROGEN 10 mg/dl (6-24); CALCIUM 8.5 mg/dl (8.5-10.5); CARBON DIOXIDE-VENOUS 28 mmol/L (22-32); CHLORIDE 106 mmol/l (96-110); CREATININE 0.98 mg/dl (0.50-1.10); GLUCOSE 130 mg/dL (70-110); POTASSIUM 3.3 mmol/L (3.7-5.1); SODIUM 143 mmol/L (135-145); eGFR VALUE FOR BLACK 74 mL/Min
[2016-08-08 14:25] LABS: URINE BILIRUBIN NEGATIVE (NEG); URINE BLOOD SMALL (NEG); URINE GLUCOSE (UA) LARGE (NEG); URINE KETONE NEGATIVE (NEG); URINE LEUKOCYTE ESTERASE POSITIVE (NEG); URINE NITRITE NEGATIVE (NEG); URINE PROTEIN MODERATE (NEG); URINE SPECIFIC GRAVITY 1.015 (1.003-1.030)
[2016-08-08 14:26] LABS: URINE APPEARANCE HAZY; URINE COLOR YELLOW
[2016-08-08 14:40] LABS: URINE BACTERIA 1+
[2016-08-08 17:03] LABS: BASO % 0.2 % (0-2); EOS % 1.3 % (0-7); EOSINOPHIL ABSOLUTE COUNT 0.2 tho/cmm (0.0-0.7); HCT-HEMATOCRIT 41.5 % (34.0-49.0); HGB-HEMOGLOBIN 13.8 gm/dl (12.0-15.5); IMMATURE GRANULOCYTES ABSOLUTE 0.05 tho/cmm (0-0.03); IMMATURE GRANULOCYTES PERCENT 0.3 % (0-0.3); LYMPH % 15.7 % (20-45); LYMPH ABSOLUTE COUNT 2.6 tho/cmm (0.8-4.5); MCH (MEAN CORPUSCULAR HGB) 27.4 pg (28.0-32.0); MCHC MEAN CORPUSCULAR HGB CONC 33.3 % (32.0-36.0); MCV (MEAN CELL VOLUME) 82.5 fl (82.0-96.0); MEAN PLATELET VOLUME 9.9 cmc (9.4-12.4); MONO % 9.2 % (0-12); MONOCYTE ABSOLUTE COUNT 1.5 tho/cmm (0.0-1.2); NEUTROPHIL ABSOLUTE COUNT 12.3 tho/cmm (1.6-8.0); NEUTROPHIL-AUTOMATED 12.3 tho/cmm (1.6-8.0); NEUTROPHILS % 73.3 % (40-80); PLATELET COUNT 704 tho/cmm (150-450); RED BLOOD COUNT 5.03 mil/cmm (4.00-5.20); RED CELL DISTRIBUTION WIDTH 14.7 % (12.4-16.4); WHITE BLOOD COUNT 16.8 tho/cmm (4.0-10.0)
[2016-08-08 17:23] LABS: ALB/GLOB RATIO 0.6 (0.8-2.0); ALBUMIN 2.7 g/dl (3.5-5.0); ALKALINE PHOSPHATASE 80 U/L (33-138); ALT/SGPT 13 U/L (12-78); AST/SGOT 13 U/L (10-40); BILIRUBIN,DIRECT 0.1 mg/dl (0.0-0.3); BILIRUBIN,INDIRECT 0.5 mg/dL (0.0-1.0); BILIRUBIN,TOTAL 0.6 mg/dl (0-1.5); C-REACTIVE PROTEIN 11.2 mg/dl (0-0.9)
[2016-08-08 17:53] LABS: PROCALCITONIN 0.08 ng/ml (0.05-0.09)
[2016-08-09 04:39] LABS: ALB/GLOB RATIO 0.5 (0.8-2.0); ALBUMIN 2.4 g/dl (3.5-5.0); ALKALINE PHOSPHATASE 74 U/L (33-138); ALT/SGPT 10 U/L (12-78); ANION GAP 13 mmol/L (0-20); AST/SGOT 13 U/L (10-40); BILIRUBIN,DIRECT 0.1 mg/dl (0.0-0.3); BILIRUBIN,INDIRECT 0.4 mg/dL (0.0-1.0); BILIRUBIN,TOTAL 0.5 mg/dl (0-1.5); BLOOD UREA NITROGEN 12 mg/dl (6-24); CALCIUM 8.5 mg/dl (8.5-10.5); CARBON DIOXIDE-VENOUS 26 mmol/L (22-32); CHLORIDE 103 mmol/l (96-110); CREATININE 1.05 mg/dl (0.50-1.10); GLUCOSE 151 mg/dL (70-110); POTASSIUM 3.6 mmol/L (3.7-5.1); SODIUM 138 mmol/L (135-145); eGFR VALUE FOR BLACK 68 mL/Min
[2016-08-11] MEDS ORDERED: CARDIZEM30 M1 PO (15:48)
[2016-08-11] MEDS ORDERED: ALDACTONE25 M1 PO (15:51)
[2016-12-08] MEDS ORDERED: PRADAXA75 M1 PO (15:46)
[2016-12-08] MEDS ORDERED: NORVASC5 M2 PO (15:47)
[2016-12-08] MEDS ORDERED: ISOSORBIDE MONO30 M4 PO (15:47)
[2016-12-08] MEDS ORDERED: GABAPENTIN300 M1 PO (15:47)
[2016-12-08] MEDS ORDERED: CARDIZEM CD120 M1 PO (15:48)
[2016-12-08] MEDS ORDERED: FLAGYL500 M1 PO (15:49)
[2016-12-08] MEDS ORDERED: NOVOLOG FL100 UNIT/2 SC (15:50)
[2016-12-08] MEDS ORDERED: CLOPIDOGREL75 M1 PO (15:51)
[2016-12-08] MEDS ORDERED: COREG25 M1 PO (15:51)
[2016-12-08] MEDS ORDERED: QUETIAPINE FUMA25 M1 PO (15:52)
[2016-12-08] MEDS ORDERED: [UNRECOGNIZED DRUG - OTHER] PO (15:53)
[2016-12-08] MEDS ORDERED: ALDACTONE25 M1 PO (15:53)
[2016-12-08] MEDS ORDERED: METOPROLOL TART25 M1 PO (15:54)
[2016-12-08] MEDS ORDERED: INVOKANA300 MG PO (15:54)
[2016-12-08] MEDS ORDERED: LIPITOR80 M1 PO (15:54)
[2016-12-08] MEDS ORDERED: CARDIZEM CD360 M1 PO (15:55)
[2016-12-08] MEDS ORDERED: AMIODARONE HCL200 M1 PO (15:56)
[2016-12-08] MEDS ORDERED: LANTUS100 UNITS/ SC (15:56)
[2016-12-08] MEDS ORDERED: LASIX40 M1 PO (15:57)
[2016-12-09] MEDS ORDERED: ASPIRIN81 M1 PO (11:20)
[2016-12-09] MEDS ORDERED: GLYXAMBI 10 MG1 EACH PO (14:16)
[2016-12-09] MEDS ORDERED: NITROGLYCERIN0.4 M2 SL (14:27)
[2016-12-09] MEDS ORDERED: MECLIZINE HCL25 M3 PO (18:30)
[2016-12-11] MEDS ORDERED: TOUJEO SOL300 UNIT/1 SC (09:43)
[2016-12-11] MEDS ORDERED: GLYXAMBI 10 MG1 EACH PO (09:45)
== END 2016-08-11 18:20 | DRG 310 ==
LOC: EDMED 21:06 → EMR2 23:50 → PCUA 08-07 17:50
PROVIDERS: Emergency Medicine; Internal Medicine Cardiovascular Disease; Physician Assistant Medical; ADMIT Internal Medicine Interventional Cardiology
PROC: 5A2204Z Restoration of Cardiac Rhythm, Single (ICD-10-PCS; principal; 2016-08-09)
DX: I48.0 Paroxysmal atrial fibrillation (principal); E11.22 Type 2 diabetes mellitus with diabetic chronic kidney disease; Z86.74 Personal history of sudden cardiac arrest; I25.10 Atherosclerotic heart disease of native coronary artery without angina pectoris; E87.6 Hypokalemia; D47.3 Essential (hemorrhagic) thrombocythemia; N18.3 Chronic kidney disease, stage 3 (moderate); I12.9 Hypertensive chronic kidney disease with stage 1 through stage 4 chronic kidney disease, or unspecified chronic kidney disease; Z86.73 Personal history of transient ischemic attack (TIA), and cerebral infarction without residual deficits; Z79.01 Long term (current) use of anticoagulants; Z95.810 Presence of automatic (implantable) cardiac defibrillator; Z95.5 Presence of coronary angioplasty implant and graft; D72.829 Elevated white blood cell count, unspecified
CPT/HCPCS: J0282; J1815; J3475; J3480; J7050

== ENCOUNTER 2016-08-28 11:36 | Observation (INO) | payer MEDICAID ==
[~2016-08-28 11:36] MED LIST changes: +ALDACTONE25 M1 PO; +CARDIZEM30 M1 PO; +LISINOPRIL40 M1 PO; +METOPROLOL TART25 M1 PO; +TOUJEO SOL300 UNIT/1 SC
[2016-08-28 12:05] LABS: BASO % 0.5 % (0-2); BASO ABSOLUTE COUNT 0.1 tho/cmm (0.0-0.2); EOS % 2.3 % (0-7); EOSINOPHIL ABSOLUTE COUNT 0.3 tho/cmm (0.0-0.7); HCT-HEMATOCRIT 43.4 % (34.0-49.0); HGB-HEMOGLOBIN 14.8 gm/dl (12.0-15.5); IMMATURE GRANULOCYTES ABSOLUTE 0.04 tho/cmm (0-0.03); IMMATURE GRANULOCYTES PERCENT 0.4 % (0-0.3); LYMPH ABSOLUTE COUNT 2.6 tho/cmm (0.8-4.5); MCH (MEAN CORPUSCULAR HGB) 27.8 pg (28.0-32.0); MCHC MEAN CORPUSCULAR HGB CONC 34.1 % (32.0-36.0); MCV (MEAN CELL VOLUME) 81.6 fl (82.0-96.0); MEAN PLATELET VOLUME 9.8 cmc (9.4-12.4); MONO % 8.3 % (0-12); MONOCYTE ABSOLUTE COUNT 0.9 tho/cmm (0.0-1.2); NEUTROPHIL ABSOLUTE COUNT 7.3 tho/cmm (1.6-8.0); NEUTROPHIL-AUTOMATED 7.3 tho/cmm (1.6-8.0); NEUTROPHILS % 65.5 % (40-80); PLATELET COUNT 400 tho/cmm (150-450); RED BLOOD COUNT 5.32 mil/cmm (4.00-5.20); RED CELL DISTRIBUTION WIDTH 16.3 % (12.4-16.4); WHITE BLOOD COUNT 11.2 tho/cmm (4.0-10.0)
[2016-08-28] MEDS ORDERED: METOPROLOL TART25 M1 PO (12:10)
[2016-08-28] MEDS ORDERED: FLAGYL500 M1 PO (12:11)
[2016-08-28 13:31] LABS: ANION GAP 12 mmol/L (0-20); BLOOD UREA NITROGEN 15 mg/dl (6-24); CALCIUM 8.2 mg/dl (8.5-10.5); CARBON DIOXIDE-VENOUS 24 mmol/L (22-32); CHLORIDE 108 mmol/l (96-110); CREATININE 1.07 mg/dl (0.50-1.10); GLUCOSE 261 mg/dL (70-110); MAGNESIUM 1.8 mg/dl (1.8-2.6); SODIUM 140 mmol/L (135-145); eGFR VALUE FOR BLACK 66 mL/Min
[2016-12-08] MEDS ORDERED: PRADAXA75 M1 PO (15:46)
[2016-12-08] MEDS ORDERED: NORVASC5 M2 PO (15:47)
[2016-12-08] MEDS ORDERED: GABAPENTIN300 M1 PO (15:47)
[2016-12-08] MEDS ORDERED: ISOSORBIDE MONO30 M4 PO (15:47)
[2016-12-08] MEDS ORDERED: CARDIZEM CD120 M1 PO (15:48)
[2016-12-08] MEDS ORDERED: FLAGYL500 M1 PO (15:49)
[2016-12-08] MEDS ORDERED: NOVOLOG FL100 UNIT/2 SC (15:50)
[2016-12-08] MEDS ORDERED: CLOPIDOGREL75 M1 PO (15:51)
[2016-12-08] MEDS ORDERED: COREG25 M1 PO (15:51)
[2016-12-08] MEDS ORDERED: QUETIAPINE FUMA25 M1 PO (15:52)
[2016-12-08] MEDS ORDERED: [UNRECOGNIZED DRUG - OTHER] PO (15:53)
[2016-12-08] MEDS ORDERED: ALDACTONE25 M1 PO (15:53)
[2016-12-08] MEDS ORDERED: INVOKANA300 MG PO (15:54)
[2016-12-08] MEDS ORDERED: LIPITOR80 M1 PO (15:54)
[2016-12-08] MEDS ORDERED: METOPROLOL TART25 M1 PO (15:54)
[2016-12-08] MEDS ORDERED: CARDIZEM CD360 M1 PO (15:55)
[2016-12-08] MEDS ORDERED: LANTUS100 UNITS/ SC (15:56)
[2016-12-08] MEDS ORDERED: AMIODARONE HCL200 M1 PO (15:56)
[2016-12-08] MEDS ORDERED: LASIX40 M1 PO (15:57)
[2016-12-09] MEDS ORDERED: ASPIRIN81 M1 PO (11:20)
[2016-12-09] MEDS ORDERED: GLYXAMBI 10 MG1 EACH PO (14:16)
[2016-12-09] MEDS ORDERED: NITROGLYCERIN0.4 M2 SL (14:27)
[2016-12-09] MEDS ORDERED: MECLIZINE HCL25 M3 PO (18:30)
[2016-12-11] MEDS ORDERED: TOUJEO SOL300 UNIT/1 SC (09:43)
[2016-12-11] MEDS ORDERED: GLYXAMBI 10 MG1 EACH PO (09:45)
== END 2016-08-30 15:20 | disposition other institution (70) ==
LOC: EDMED 11:36 → EMR2 15:32 → PCUB 16:29
PROVIDERS: Emergency Medicine; Physician Assistant; ADMIT Internal Medicine Interventional Cardiology
DX: R07.9 Chest pain, unspecified (principal); I48.91 Unspecified atrial fibrillation; I25.10 Atherosclerotic heart disease of native coronary artery without angina pectoris; E11.22 Type 2 diabetes mellitus with diabetic chronic kidney disease; I12.9 Hypertensive chronic kidney disease with stage 1 through stage 4 chronic kidney disease, or unspecified chronic kidney disease; N18.9 Chronic kidney disease, unspecified; I45.81 Long QT syndrome; Z79.899 Other long term (current) drug therapy; Z95.810 Presence of automatic (implantable) cardiac defibrillator; Z98.890 Other specified postprocedural states
CPT/HCPCS: G0378; J1815; J7030

== ENCOUNTER 2016-09-28 12:57 | Observation (INO) | payer MEDICAID ==
[2016-09-28 13:27] LABS: BASO % 0.4 % (0-2); EOS % 1.1 % (0-7); EOSINOPHIL ABSOLUTE COUNT 0.1 tho/cmm (0.0-0.7); HCT-HEMATOCRIT 48.7 % (34.0-49.0); HGB-HEMOGLOBIN 16.8 gm/dl (12.0-15.5); IMMATURE GRANULOCYTES ABSOLUTE 0.02 tho/cmm (0-0.03); IMMATURE GRANULOCYTES PERCENT 0.2 % (0-0.3); LYMPH % 28.7 % (20-45); LYMPH ABSOLUTE COUNT 2.5 tho/cmm (0.8-4.5); MCH (MEAN CORPUSCULAR HGB) 27.9 pg (28.0-32.0); MCHC MEAN CORPUSCULAR HGB CONC 34.5 % (32.0-36.0); MCV (MEAN CELL VOLUME) 80.8 fl (82.0-96.0); MONO % 7.4 % (0-12); MONOCYTE ABSOLUTE COUNT 0.6 tho/cmm (0.0-1.2); NEUTROPHIL ABSOLUTE COUNT 5.3 tho/cmm (1.6-8.0); NEUTROPHIL-AUTOMATED 5.3 tho/cmm (1.6-8.0); NEUTROPHILS % 62.2 % (40-80); PLATELET COUNT 363 tho/cmm (150-450); RED BLOOD COUNT 6.03 mil/cmm (4.00-5.20); RED CELL DISTRIBUTION WIDTH 16.3 % (12.4-16.4); WHITE BLOOD COUNT 8.6 tho/cmm (4.0-10.0)
[2016-09-28 13:30] LABS: PROTHROMBIN TIME 11.4 SECONDS (9.0-13.6)
[2016-09-28 13:41] LABS: ANION GAP 15 mmol/L (0-20); BLOOD UREA NITROGEN 33 mg/dl (6-24); CARBON DIOXIDE-VENOUS 22 mmol/L (22-32); CHLORIDE 105 mmol/l (96-110); CREATININE 1.51 mg/dl (0.50-1.10); GLUCOSE 415 mg/dL (70-110); POTASSIUM 4.5 mmol/L (3.7-5.1); SODIUM 137 mmol/L (135-145); eGFR VALUE FOR BLACK 44 mL/Min
[2016-09-28] MEDS ORDERED: GLYXAMBI 10 MG1 EACH PO (14:13)
[2016-09-28 15:29] LABS: URINE APPEARANCE CLEAR; URINE BILIRUBIN NEGATIVE (NEG); URINE BLOOD SMALL (NEG); URINE COLOR YELLOW; URINE GLUCOSE (UA) LARGE (NEG); URINE KETONE NEGATIVE (NEG); URINE LEUKOCYTE ESTERASE NEGATIVE (NEG); URINE NITRITE POSITIVE (NEG); URINE PROTEIN MODERATE (NEG); URINE SPECIFIC GRAVITY 1.015 (1.003-1.030)
[2016-09-28 15:41] LABS: URINE WBC 25-30 /[HPF] (0-5)
[2016-09-28 15:42] LABS: URINE BACTERIA 3+
[2016-09-29] MEDS ORDERED: NOVOLOG100 UNITS/ SC (17:58)
[2016-12-08] MEDS ORDERED: PRADAXA75 M1 PO (15:46)
[2016-12-08] MEDS ORDERED: ISOSORBIDE MONO30 M4 PO (15:47)
[2016-12-08] MEDS ORDERED: NORVASC5 M2 PO (15:47)
[2016-12-08] MEDS ORDERED: GABAPENTIN300 M1 PO (15:47)
[2016-12-08] MEDS ORDERED: CARDIZEM CD120 M1 PO (15:48)
[2016-12-08] MEDS ORDERED: FLAGYL500 M1 PO (15:49)
[2016-12-08] MEDS ORDERED: NOVOLOG FL100 UNIT/2 SC (15:50)
[2016-12-08] MEDS ORDERED: COREG25 M1 PO (15:51)
[2016-12-08] MEDS ORDERED: CLOPIDOGREL75 M1 PO (15:51)
[2016-12-08] MEDS ORDERED: QUETIAPINE FUMA25 M1 PO (15:52)
[2016-12-08] MEDS ORDERED: [UNRECOGNIZED DRUG - OTHER] PO (15:53)
[2016-12-08] MEDS ORDERED: ALDACTONE25 M1 PO (15:53)
[2016-12-08] MEDS ORDERED: LIPITOR80 M1 PO (15:54)
[2016-12-08] MEDS ORDERED: INVOKANA300 MG PO (15:54)
[2016-12-08] MEDS ORDERED: METOPROLOL TART25 M1 PO (15:54)
[2016-12-08] MEDS ORDERED: CARDIZEM CD360 M1 PO (15:55)
[2016-12-08] MEDS ORDERED: AMIODARONE HCL200 M1 PO (15:56)
[2016-12-08] MEDS ORDERED: LANTUS100 UNITS/ SC (15:56)
[2016-12-08] MEDS ORDERED: LASIX40 M1 PO (15:57)
[2016-12-09] MEDS ORDERED: ASPIRIN81 M1 PO (11:20)
[2016-12-09] MEDS ORDERED: GLYXAMBI 10 MG1 EACH PO (14:16)
[2016-12-09] MEDS ORDERED: NITROGLYCERIN0.4 M2 SL (14:27)
[2016-12-09] MEDS ORDERED: MECLIZINE HCL25 M3 PO (18:30)
[2016-12-11] MEDS ORDERED: TOUJEO SOL300 UNIT/1 SC (09:43)
[2016-12-11] MEDS ORDERED: GLYXAMBI 10 MG1 EACH PO (09:45)
== END 2016-09-29 21:30 ==
LOC: EDMED 12:57 → EMR2 15:22 → 5EB 19:20
PROVIDERS: Emergency Medicine; Hospitalist; ADMIT Hospitalist
DX: G45.9 Transient cerebral ischemic attack, unspecified (principal); I25.10 Atherosclerotic heart disease of native coronary artery without angina pectoris; I48.2 Chronic atrial fibrillation; E78.5 Hyperlipidemia, unspecified; I12.9 Hypertensive chronic kidney disease with stage 1 through stage 4 chronic kidney disease, or unspecified chronic kidney disease; E11.22 Type 2 diabetes mellitus with diabetic chronic kidney disease; N18.3 Chronic kidney disease, stage 3 (moderate); H53.462 Homonymous bilateral field defects, left side; R49.0 Dysphonia; Z87.891 Personal history of nicotine dependence; Z79.02 Long term (current) use of antithrombotics/antiplatelets; Z79.4 Long term (current) use of insulin; Z79.84 Long term (current) use of oral hypoglycemic drugs; Z79.899 Other long term (current) drug therapy; Z91.14 Patient's other noncompliance with medication regimen; Z95.810 Presence of automatic (implantable) cardiac defibrillator; Z95.5 Presence of coronary angioplasty implant and graft; Z90.49 Acquired absence of other specified parts of digestive tract; Z98.890 Other specified postprocedural states
CPT/HCPCS: C8929; G0378; G8978-GP-CJ; G8979-GP-CI; G8987-GO-CI; G8988-GO-CH; G8989-GO-CI; J1815; J7030

== ENCOUNTER 2016-10-01 19:01 | Emergency (ER) | payer MEDICAID ==
[~2016-10-01 19:01] MED LIST changes: +GLYXAMBI 10 MG1 EACH PO
[2016-10-01 19:58] LABS: BASO % 0.5 % (0-2); BASO ABSOLUTE COUNT 0.1 tho/cmm (0.0-0.2); EOS % 3.1 % (0-7); EOSINOPHIL ABSOLUTE COUNT 0.3 tho/cmm (0.0-0.7); HGB-HEMOGLOBIN 16.5 gm/dl (12.0-15.5); IMMATURE GRANULOCYTES ABSOLUTE 0.03 tho/cmm (0-0.03); IMMATURE GRANULOCYTES PERCENT 0.3 % (0-0.3); LYMPH % 32.4 % (20-45); LYMPH ABSOLUTE COUNT 3.4 tho/cmm (0.8-4.5); MCH (MEAN CORPUSCULAR HGB) 28.3 pg (28.0-32.0); MCHC MEAN CORPUSCULAR HGB CONC 35.1 % (32.0-36.0); MCV (MEAN CELL VOLUME) 80.6 fl (82.0-96.0); MEAN PLATELET VOLUME 9.8 cmc (9.4-12.4); MONO % 8.7 % (0-12); MONOCYTE ABSOLUTE COUNT 0.9 tho/cmm (0.0-1.2); NEUTROPHIL ABSOLUTE COUNT 5.9 tho/cmm (1.6-8.0); NEUTROPHIL-AUTOMATED 5.9 tho/cmm (1.6-8.0); PLATELET COUNT 337 tho/cmm (150-450); RED BLOOD COUNT 5.83 mil/cmm (4.00-5.20); RED CELL DISTRIBUTION WIDTH 16.4 % (12.4-16.4); WHITE BLOOD COUNT 10.6 tho/cmm (4.0-10.0)
[2016-10-01 20:03] LABS: PROTHROMBIN TIME 12.1 SECONDS (9.0-13.6)
[2016-10-01 20:15] LABS: ALCOHOL (ETOH) <10 mg/dl (<10); ALKALINE PHOSPHATASE 95 U/L (33-138); ALT/SGPT 20 U/L (12-78); BILIRUBIN,TOTAL 0.4 mg/dl (0-1.5); BLOOD UREA NITROGEN 30 mg/dl (6-24); CALCIUM 8.8 mg/dl (8.5-10.5); CARBON DIOXIDE-VENOUS 22 mmol/L (22-32); CHLORIDE 106 mmol/l (96-110); CKMB 1.8 ng/ml (<3.6); CREATININE 1.41 mg/dl (0.50-1.10); GLUCOSE 261 mg/dL (70-110); SODIUM 138 mmol/L (135-145); eGFR VALUE FOR BLACK 47 mL/Min
[2016-10-01 20:18] LABS: ALB/GLOB RATIO 0.9 (0.8-2.0); ALBUMIN 3.8 g/dl (3.5-5.0); ANION GAP 14 mmol/L (0-20); AST/SGOT 31 U/L (10-40); CREATINE PHOSPHOKINASE (CPK) 157 U/L (21-215); POTASSIUM 4.3 mmol/L (3.7-5.1)
[2016-12-08] MEDS ORDERED: PRADAXA75 M1 PO (15:46)
[2016-12-08] MEDS ORDERED: GABAPENTIN300 M1 PO (15:47)
[2016-12-08] MEDS ORDERED: ISOSORBIDE MONO30 M4 PO (15:47)
[2016-12-08] MEDS ORDERED: NORVASC5 M2 PO (15:47)
[2016-12-08] MEDS ORDERED: CARDIZEM CD120 M1 PO (15:48)
[2016-12-08] MEDS ORDERED: FLAGYL500 M1 PO (15:49)
[2016-12-08] MEDS ORDERED: NOVOLOG FL100 UNIT/2 SC (15:50)
[2016-12-08] MEDS ORDERED: CLOPIDOGREL75 M1 PO (15:51)
[2016-12-08] MEDS ORDERED: COREG25 M1 PO (15:51)
[2016-12-08] MEDS ORDERED: QUETIAPINE FUMA25 M1 PO (15:52)
[2016-12-08] MEDS ORDERED: ALDACTONE25 M1 PO (15:53)
[2016-12-08] MEDS ORDERED: [UNRECOGNIZED DRUG - OTHER] PO (15:53)
[2016-12-08] MEDS ORDERED: LIPITOR80 M1 PO (15:54)
[2016-12-08] MEDS ORDERED: METOPROLOL TART25 M1 PO (15:54)
[2016-12-08] MEDS ORDERED: INVOKANA300 MG PO (15:54)
[2016-12-08] MEDS ORDERED: CARDIZEM CD360 M1 PO (15:55)
[2016-12-08] MEDS ORDERED: AMIODARONE HCL200 M1 PO (15:56)
[2016-12-08] MEDS ORDERED: LANTUS100 UNITS/ SC (15:56)
[2016-12-08] MEDS ORDERED: LASIX40 M1 PO (15:57)
[2016-12-09] MEDS ORDERED: ASPIRIN81 M1 PO (11:20)
[2016-12-09] MEDS ORDERED: GLYXAMBI 10 MG1 EACH PO (14:16)
[2016-12-09] MEDS ORDERED: NITROGLYCERIN0.4 M2 SL (14:27)
[2016-12-09] MEDS ORDERED: MECLIZINE HCL25 M3 PO (18:30)
[2016-12-11] MEDS ORDERED: TOUJEO SOL300 UNIT/1 SC (09:43)
[2016-12-11] MEDS ORDERED: GLYXAMBI 10 MG1 EACH PO (09:45)
== END 2016-10-01 22:29 ==
LOC: EDMED 19:01
PROVIDERS: Emergency Medicine
DX: R20.0 Anesthesia of skin (principal); Z86.73 Personal history of transient ischemic attack (TIA), and cerebral infarction without residual deficits; Z90.89 Acquired absence of other organs; Z95.0 Presence of cardiac pacemaker; Z98.890 Other specified postprocedural states
CPT/HCPCS: G0480

== ENCOUNTER 2016-10-13 08:25 | Emergency (ER) | payer MEDICAID ==
[2016-10-13] MEDS ORDERED: ASPIRIN EC81 MG PO (08:45)
[2016-10-13 09:04] LABS: BASO ABSOLUTE COUNT 0.1 tho/cmm (0.0-0.2); EOS % 2.5 % (0-7); EOSINOPHIL ABSOLUTE COUNT 0.3 tho/cmm (0.0-0.7); HCT-HEMATOCRIT 50.4 % (34.0-49.0); HGB-HEMOGLOBIN 17.4 gm/dl (12.0-15.5); LYMPH % 18.7 % (20-45); LYMPH ABSOLUTE COUNT 2.1 tho/cmm (0.8-4.5); MCH (MEAN CORPUSCULAR HGB) 27.3 pg (28.0-32.0); MCHC MEAN CORPUSCULAR HGB CONC 34.5 % (32.0-36.0); MCV (MEAN CELL VOLUME) 79.1 fl (82.0-96.0); MONO % 8.6 % (0-12); NEUTROPHIL ABSOLUTE COUNT 7.8 tho/cmm (1.6-8.0); NEUTROPHIL-AUTOMATED 7.8 tho/cmm (1.6-8.0); NEUTROPHILS % 69.2 % (40-80); PLATELET COUNT 410 tho/cmm (150-450); RED BLOOD COUNT 6.37 mil/cmm (4.00-5.20); WHITE BLOOD COUNT 11.2 tho/cmm (4.0-10.0)
[2016-10-13 09:10] LABS: INR 1.2 INR (0.9-1.1); PROTHROMBIN TIME 14.2 SECONDS (9.0-13.6)
[2016-10-13 09:21] LABS: ANION GAP 13 mmol/L (0-20); BLOOD UREA NITROGEN 31 mg/dl (6-24); CALCIUM 9.8 mg/dl (8.5-10.5); CARBON DIOXIDE-VENOUS 24 mmol/L (22-32); CHLORIDE 105 mmol/l (96-110); CREATININE 1.51 mg/dl (0.50-1.10); GLUCOSE 253 mg/dL (70-110); MAGNESIUM 2.3 mg/dl (1.8-2.6); SODIUM 138 mmol/L (135-145); eGFR VALUE FOR BLACK 44 mL/Min
[2016-10-13 11:34] LABS: URINE BILIRUBIN NEGATIVE (NEG); URINE BLOOD NEGATIVE (NEG); URINE GLUCOSE (UA) LARGE (NEG); URINE KETONE NEGATIVE (NEG); URINE LEUKOCYTE ESTERASE NEGATIVE (NEG); URINE NITRITE NEGATIVE (NEG); URINE PH 6.5 (5.0-8.0); URINE PROTEIN MODERATE (NEG)
[2016-10-13 11:35] LABS: URINE APPEARANCE CLEAR; URINE COLOR PALE YELLOW
[2016-10-13 11:41] LABS: URINE BACTERIA 3+
[2016-12-08] MEDS ORDERED: PRADAXA75 M1 PO (15:46)
[2016-12-08] MEDS ORDERED: GABAPENTIN300 M1 PO (15:47)
[2016-12-08] MEDS ORDERED: ISOSORBIDE MONO30 M4 PO (15:47)
[2016-12-08] MEDS ORDERED: NORVASC5 M2 PO (15:47)
[2016-12-08] MEDS ORDERED: CARDIZEM CD120 M1 PO (15:48)
[2016-12-08] MEDS ORDERED: FLAGYL500 M1 PO (15:49)
[2016-12-08] MEDS ORDERED: NOVOLOG FL100 UNIT/2 SC (15:50)
[2016-12-08] MEDS ORDERED: CLOPIDOGREL75 M1 PO (15:51)
[2016-12-08] MEDS ORDERED: COREG25 M1 PO (15:51)
[2016-12-08] MEDS ORDERED: QUETIAPINE FUMA25 M1 PO (15:52)
[2016-12-08] MEDS ORDERED: [UNRECOGNIZED DRUG - OTHER] PO (15:53)
[2016-12-08] MEDS ORDERED: ALDACTONE25 M1 PO (15:53)
[2016-12-08] MEDS ORDERED: METOPROLOL TART25 M1 PO (15:54)
[2016-12-08] MEDS ORDERED: INVOKANA300 MG PO (15:54)
[2016-12-08] MEDS ORDERED: LIPITOR80 M1 PO (15:54)
[2016-12-08] MEDS ORDERED: CARDIZEM CD360 M1 PO (15:55)
[2016-12-08] MEDS ORDERED: AMIODARONE HCL200 M1 PO (15:56)
[2016-12-08] MEDS ORDERED: LANTUS100 UNITS/ SC (15:56)
[2016-12-08] MEDS ORDERED: LASIX40 M1 PO (15:57)
[2016-12-09] MEDS ORDERED: ASPIRIN81 M1 PO (11:20)
[2016-12-09] MEDS ORDERED: GLYXAMBI 10 MG1 EACH PO (14:16)
[2016-12-09] MEDS ORDERED: NITROGLYCERIN0.4 M2 SL (14:27)
[2016-12-09] MEDS ORDERED: MECLIZINE HCL25 M3 PO (18:30)
[2016-12-11] MEDS ORDERED: TOUJEO SOL300 UNIT/1 SC (09:43)
[2016-12-11] MEDS ORDERED: GLYXAMBI 10 MG1 EACH PO (09:45)
== END 2016-10-13 13:40 ==
LOC: EDMED 08:25
PROVIDERS: Emergency Medicine
DX: R55 Syncope and collapse (principal); F17.210 Nicotine dependence, cigarettes, uncomplicated; E11.9 Type 2 diabetes mellitus without complications; I48.91 Unspecified atrial fibrillation; I10 Essential (primary) hypertension; Z79.01 Long term (current) use of anticoagulants; Z79.02 Long term (current) use of antithrombotics/antiplatelets
CPT/HCPCS: G8978-GP-CJ; G8979-GP-CJ; G8980-GP-CJ; J7030

== ENCOUNTER 2016-10-16 08:40 | Emergency (ER) | payer MEDICAID ==
[2016-10-16 09:40] LABS: BASO % 0.5 % (0-2); BASO ABSOLUTE COUNT 0.1 tho/cmm (0.0-0.2); EOS % 3.5 % (0-7); EOSINOPHIL ABSOLUTE COUNT 0.4 tho/cmm (0.0-0.7); HGB-HEMOGLOBIN 16.7 gm/dl (12.0-15.5); IMMATURE GRANULOCYTES ABSOLUTE 0.03 tho/cmm (0-0.03); IMMATURE GRANULOCYTES PERCENT 0.3 % (0-0.3); LYMPH % 23.4 % (20-45); LYMPH ABSOLUTE COUNT 2.4 tho/cmm (0.8-4.5); MCH (MEAN CORPUSCULAR HGB) 28.4 pg (28.0-32.0); MCHC MEAN CORPUSCULAR HGB CONC 35.5 % (32.0-36.0); MCV (MEAN CELL VOLUME) 79.9 fl (82.0-96.0); MEAN PLATELET VOLUME 9.7 cmc (9.4-12.4); MONO % 8.3 % (0-12); MONOCYTE ABSOLUTE COUNT 0.9 tho/cmm (0.0-1.2); NEUTROPHIL ABSOLUTE COUNT 6.6 tho/cmm (1.6-8.0); NEUTROPHIL-AUTOMATED 6.6 tho/cmm (1.6-8.0); PLATELET COUNT 379 tho/cmm (150-450); RED BLOOD COUNT 5.88 mil/cmm (4.00-5.20); RED CELL DISTRIBUTION WIDTH 16.5 % (12.4-16.4); WHITE BLOOD COUNT 10.3 tho/cmm (4.0-10.0)
[2016-10-16 09:49] LABS: ANION GAP 17 mmol/L (0-20); BLOOD UREA NITROGEN 33 mg/dl (6-24); CALCIUM 9.2 mg/dl (8.5-10.5); CARBON DIOXIDE-VENOUS 21 mmol/L (22-32); CHLORIDE 105 mmol/l (96-110); CREATININE 1.41 mg/dl (0.50-1.10); GLUCOSE 217 mg/dL (70-110); MAGNESIUM 2.1 mg/dl (1.8-2.6); POTASSIUM 4.5 mmol/L (3.7-5.1); SODIUM 138 mmol/L (135-145); eGFR VALUE FOR BLACK 47 mL/Min
[2016-10-16] MEDS ORDERED: AMIODARONE HCL200 M1 PO (10:23)
[2016-10-16] MEDS ORDERED: ISOSORBIDE MONO30 M4 PO (10:24)
[2016-10-16] MEDS ORDERED: ALDACTONE25 M1 PO (10:24)
[2016-10-16] MEDS ORDERED: KEFLEX500 M4 PO (10:59)
[2016-12-08] MEDS ORDERED: PRADAXA75 M1 PO (15:46)
[2016-12-08] MEDS ORDERED: GABAPENTIN300 M1 PO (15:47)
[2016-12-08] MEDS ORDERED: NORVASC5 M2 PO (15:47)
[2016-12-08] MEDS ORDERED: ISOSORBIDE MONO30 M4 PO (15:47)
[2016-12-08] MEDS ORDERED: CARDIZEM CD120 M1 PO (15:48)
[2016-12-08] MEDS ORDERED: FLAGYL500 M1 PO (15:49)
[2016-12-08] MEDS ORDERED: NOVOLOG FL100 UNIT/2 SC (15:50)
[2016-12-08] MEDS ORDERED: CLOPIDOGREL75 M1 PO (15:51)
[2016-12-08] MEDS ORDERED: COREG25 M1 PO (15:51)
[2016-12-08] MEDS ORDERED: QUETIAPINE FUMA25 M1 PO (15:52)
[2016-12-08] MEDS ORDERED: [UNRECOGNIZED DRUG - OTHER] PO (15:53)
[2016-12-08] MEDS ORDERED: ALDACTONE25 M1 PO (15:53)
[2016-12-08] MEDS ORDERED: LIPITOR80 M1 PO (15:54)
[2016-12-08] MEDS ORDERED: METOPROLOL TART25 M1 PO (15:54)
[2016-12-08] MEDS ORDERED: INVOKANA300 MG PO (15:54)
[2016-12-08] MEDS ORDERED: CARDIZEM CD360 M1 PO (15:55)
[2016-12-08] MEDS ORDERED: AMIODARONE HCL200 M1 PO (15:56)
[2016-12-08] MEDS ORDERED: LANTUS100 UNITS/ SC (15:56)
[2016-12-08] MEDS ORDERED: LASIX40 M1 PO (15:57)
[2016-12-09] MEDS ORDERED: ASPIRIN81 M1 PO (11:20)
[2016-12-09] MEDS ORDERED: GLYXAMBI 10 MG1 EACH PO (14:16)
[2016-12-09] MEDS ORDERED: NITROGLYCERIN0.4 M2 SL (14:27)
[2016-12-09] MEDS ORDERED: MECLIZINE HCL25 M3 PO (18:30)
[2016-12-11] MEDS ORDERED: TOUJEO SOL300 UNIT/1 SC (09:43)
[2016-12-11] MEDS ORDERED: GLYXAMBI 10 MG1 EACH PO (09:45)
== END 2016-10-16 11:39 ==
LOC: EDMED 08:40
PROVIDERS: Family Medicine
DX: E11.65 Type 2 diabetes mellitus with hyperglycemia (principal); E11.22 Type 2 diabetes mellitus with diabetic chronic kidney disease; I12.9 Hypertensive chronic kidney disease with stage 1 through stage 4 chronic kidney disease, or unspecified chronic kidney disease; N18.9 Chronic kidney disease, unspecified; E78.5 Hyperlipidemia, unspecified; Z79.4 Long term (current) use of insulin; Z79.82 Long term (current) use of aspirin; Z86.73 Personal history of transient ischemic attack (TIA), and cerebral infarction without residual deficits; Z79.899 Other long term (current) drug therapy

== ENCOUNTER 2016-10-24 15:24 | Observation (INO) | payer MEDICAID ==
[~2016-10-24 15:24] MED LIST changes: +ISOSORBIDE MONO30 M4 PO; +KEFLEX500 M4 PO
[2016-10-24 16:36] LABS: BASO % 0.4 % (0-2); EOS % 2.1 % (0-7); EOSINOPHIL ABSOLUTE COUNT 0.2 tho/cmm (0.0-0.7); HCT-HEMATOCRIT 45.9 % (34.0-49.0); HGB-HEMOGLOBIN 15.8 gm/dl (12.0-15.5); IMMATURE GRANULOCYTES ABSOLUTE 0.02 tho/cmm (0-0.03); IMMATURE GRANULOCYTES PERCENT 0.2 % (0-0.3); LYMPH % 26.1 % (20-45); LYMPH ABSOLUTE COUNT 2.4 tho/cmm (0.8-4.5); MCHC MEAN CORPUSCULAR HGB CONC 34.4 % (32.0-36.0); MCV (MEAN CELL VOLUME) 81.2 fl (82.0-96.0); MEAN PLATELET VOLUME 9.5 cmc (9.4-12.4); MONO % 7.5 % (0-12); MONOCYTE ABSOLUTE COUNT 0.7 tho/cmm (0.0-1.2); NEUTROPHIL ABSOLUTE COUNT 5.8 tho/cmm (1.6-8.0); NEUTROPHIL-AUTOMATED 5.8 tho/cmm (1.6-8.0); NEUTROPHILS % 63.7 % (40-80); PLATELET COUNT 334 tho/cmm (150-450); RED BLOOD COUNT 5.65 mil/cmm (4.00-5.20); RED CELL DISTRIBUTION WIDTH 16.7 % (12.4-16.4); WHITE BLOOD COUNT 9.2 tho/cmm (4.0-10.0)
[2016-10-24 16:51] LABS: ANION GAP 13 mmol/L (0-20); BLOOD UREA NITROGEN 20 mg/dl (6-24); CALCIUM 8.8 mg/dl (8.5-10.5); CARBON DIOXIDE-VENOUS 24 mmol/L (22-32); CHLORIDE 106 mmol/l (96-110); CREATININE 1.32 mg/dl (0.50-1.10); GLUCOSE 224 mg/dL (70-110); SODIUM 139 mmol/L (135-145); eGFR VALUE FOR BLACK 51 mL/Min
[2016-10-24] MEDS ORDERED: CEPHALEXIN500 M2 PO (17:55)
[2016-10-25] MEDS ORDERED: NORVASC5 M2 PO (10:47)
[2016-12-08] MEDS ORDERED: PRADAXA75 M1 PO (15:46)
[2016-12-08] MEDS ORDERED: NORVASC5 M2 PO (15:47)
[2016-12-08] MEDS ORDERED: GABAPENTIN300 M1 PO (15:47)
[2016-12-08] MEDS ORDERED: ISOSORBIDE MONO30 M4 PO (15:47)
[2016-12-08] MEDS ORDERED: CARDIZEM CD120 M1 PO (15:48)
[2016-12-08] MEDS ORDERED: FLAGYL500 M1 PO (15:49)
[2016-12-08] MEDS ORDERED: NOVOLOG FL100 UNIT/2 SC (15:50)
[2016-12-08] MEDS ORDERED: CLOPIDOGREL75 M1 PO (15:51)
[2016-12-08] MEDS ORDERED: COREG25 M1 PO (15:51)
[2016-12-08] MEDS ORDERED: QUETIAPINE FUMA25 M1 PO (15:52)
[2016-12-08] MEDS ORDERED: ALDACTONE25 M1 PO (15:53)
[2016-12-08] MEDS ORDERED: [UNRECOGNIZED DRUG - OTHER] PO (15:53)
[2016-12-08] MEDS ORDERED: INVOKANA300 MG PO (15:54)
[2016-12-08] MEDS ORDERED: METOPROLOL TART25 M1 PO (15:54)
[2016-12-08] MEDS ORDERED: LIPITOR80 M1 PO (15:54)
[2016-12-08] MEDS ORDERED: CARDIZEM CD360 M1 PO (15:55)
[2016-12-08] MEDS ORDERED: AMIODARONE HCL200 M1 PO (15:56)
[2016-12-08] MEDS ORDERED: LANTUS100 UNITS/ SC (15:56)
[2016-12-08] MEDS ORDERED: LASIX40 M1 PO (15:57)
[2016-12-09] MEDS ORDERED: ASPIRIN81 M1 PO (11:20)
[2016-12-09] MEDS ORDERED: GLYXAMBI 10 MG1 EACH PO (14:16)
[2016-12-09] MEDS ORDERED: NITROGLYCERIN0.4 M2 SL (14:27)
[2016-12-09] MEDS ORDERED: MECLIZINE HCL25 M3 PO (18:30)
[2016-12-11] MEDS ORDERED: TOUJEO SOL300 UNIT/1 SC (09:43)
[2016-12-11] MEDS ORDERED: GLYXAMBI 10 MG1 EACH PO (09:45)
== END 2016-10-25 12:20 ==
LOC: EDMED 15:24 → EMR2 17:21 → CAR1 18:35
PROVIDERS: Emergency Medicine; Nurse Practitioner Family; ADMIT Internal Medicine Cardiovascular Disease
DX: R07.9 Chest pain, unspecified (principal); I12.9 Hypertensive chronic kidney disease with stage 1 through stage 4 chronic kidney disease, or unspecified chronic kidney disease; E11.22 Type 2 diabetes mellitus with diabetic chronic kidney disease; N18.3 Chronic kidney disease, stage 3 (moderate); J44.9 Chronic obstructive pulmonary disease, unspecified; E78.5 Hyperlipidemia, unspecified; I48.91 Unspecified atrial fibrillation; I25.10 Atherosclerotic heart disease of native coronary artery without angina pectoris; Z86.73 Personal history of transient ischemic attack (TIA), and cerebral infarction without residual deficits; Z87.891 Personal history of nicotine dependence; Z95.5 Presence of coronary angioplasty implant and graft; Z79.82 Long term (current) use of aspirin; Z79.01 Long term (current) use of anticoagulants; Z79.899 Other long term (current) drug therapy; Z98.890 Other specified postprocedural states
CPT/HCPCS: G0378; J1815